=== PATIENT | male | born 1960 | race Caucasian/White ===

== ENCOUNTER 2018-04-08 21:30 | Emergency (ER) | payer OTHER, SELFPAY ==
[2018-04-08 21:40] VITALS: BP 166/91; PULSE 94; RESP 18; TEMP 36.2; O2SAT 100; BMI 32.6
--- NOTE | 2018-04-08 22:10 | ED.ABDPAIN ---
HPI - Abdominal Pain General Chief Complaint: Abdominal Pain Stated Complaint: sharp pain in stomach when eating Time Seen by Provider: 04/08/18 22:10 Source: patient Mode of arrival: ambulatory Limitations: no limitations History of Present Illness HPI narrative: The patient complains of epigastric abdominal pain. He has had this pain for 3 weeks. He has nausea without emesis. He denies fever or chills. The pain is described as severe, sharp and burning. Pain occurs after eating. He has had 2 recent visits to [facility], with [address] abdominal [address] The CTs were reportedly normal. He is status post Abraham fundoplication several years ago. At that time the surgeons had helped to remove his gallbladder, fearing it was bad. The cholecystectomy did not occur due to difficulty with the primary surgical procedure. He has had no follow up on his gallbladder since then, other than the CTs noted above. He is not having bowel or urine changes he has no urinary complaints. He has no diarrhea or constipation. Related Data Home Medications Medication Instructions Recorded Confirmed lisinopril #0 10/10/16 Allergies Allergy/AdvReac Type Severity Reaction Status Date / Time No Known Allergies Allergy Uncoded 11/11/17 12:42 Review of Systems Constitutional Reports as per HPI, Denies chills, Denies fever(s), Denies lethargy and Denies weakness ENT Ears, Nose, Mouth, and Throat: Denies change in voice, Denies neck pain, Denies sore throat and Denies throat swelling Cardiovascular Denies chest pain, Denies irregular heart rhythm, Denies lightheadedness, Denies palpitations, Denies dyspnea, Denies dyspnea on exertion and Denies orthopnea Respiratory Denies cough, Denies dyspnea, Denies dyspnea on exertion and Denies wheezing Gastrointestinal Gastrointestinal: Reports abdominal pain, Denies change in bowel habits, Denies diarrhea, Reports nausea and Denies vomiting Genitourinary Denies urinary frequency Musculoskeletal Denies joint swelling and Denies neck pain Integumentary/Breasts Denies erythema and Denies rash Neurologic Denies weakness Endocrine Denies palpitations Allergic/Immunologic Denies throat swelling and Denies wheezing [facility] Medical History GERD (gastroesophageal reflux disease) (Acute) Hypertension (Acute) Surgical History History of Filomena fundoplication (Acute) Social History Smoking Status: Never smoker substance use type: does not use Exam Initial Vital Signs Initial Vital Signs: Vital Signs Temperature 97.1 F L 04/08/18 21:40 Pulse Rate 94 H 04/08/18 21:40 Respiratory Rate 18 04/08/18 21:40 Blood Pressure 166/91 H 04/08/18 21:40 Pulse Oximetry 100 04/08/18 21:40 Const General: cooperative, healthy appearing and acute distress HENMT Head: normal to inspection, normocephalic and atraumatic Mouth: oral mucosae normal and moist mucous membranes Throat: posterior oropharynx normal Eyes General: appearance normal, both eyes and all related structures Conjunctivae: conjunctivae normal Neck Thyroid: thyroid normal Resp Effort & Inspection: normal respiratory effort, able to speak in complete sentences, no respiratory distress and no use of accessory muscles Auscultation: clear to auscultation bilaterally, no rales, no rhonchi and no wheezes Cardio Rate: regular rate Rhythm: regular rhythm Heart Sounds: no click, no gallops, no murmurs and no rubs Pulses: normal peripheral pulses GI Inspection: non-distended Palpation: no hepatosplenomegaly, No guarding, No pulsatile mass and tender ( in the epigastric area.) Auscultation: normal bowel sounds Back/Spine/Pelvis Back: normal to inspection and No CVA tenderness Skin General: no rashes or lesions noted Neuro General: alert, oriented x3 and no focal motor deficits Extrem General: normal to inspection and full ROM Course Orders Ordered: ED Orders 04/08/18 21:45 Complete Blood Count AUTO DIFF Stat Comprehensive Metabolic Panel Stat Lipase Stat 04/08/18 22:30 US abdomen complete Stat Sodium Chloride (Normal Saline 0.9%) 1,000 mls @ 150 mls/hr IV CONT FRANCES Last Admin: 04/08/18 22:51 Dose: 150 mls/hr Discontinued Medications Al Hydrox/Mg Hydrox/Simethicone 20 ml/ Lidocaine HCl 15 ml 0 ml PO NOW ONE Stop: 04/08/18 22:32 Last Admin: 04/08/18 22:53 Dose: 30 ml Hydromorphone HCl (Dilaudid) 1 mg IV Q15M FRANCES Stop: 04/08/18 22:46 Last Admin: 04/08/18 23:10 Dose: 1 mg Admin: 09/06/18 22:52 Dose: 1 mg Ondansetron HCl (Zofran) 4 mg IV NOW ONE Stop: 04/08/18 22:54 Last Admin: 04/08/18 22:54 Dose: 4 mg Pantoprazole Sodium (Protonix) 40 mg IV NOW ONE Stop: 04/08/18 22:30 Last Admin: 04/08/18 22:53 Dose: 40 mg Vital Signs - 8 hr 04/08/18 21:40 04/08/18 23:22 Temperature 97.1 F L Pulse Rate 94 H 64 Respiratory Rate 18 Blood Pressure 166/91 H Pulse Oximetry 100 95 MDM - Abdominal Pain Lab Data Attestation: I reviewed the patient's lab results. Result diagrams: 04/08/18 21:45 04/08/18 21:45 Lab Results 04/08/18 04/08/18 Range/Units 21:45 21:45 WBC 9.5 (4.5-11.0) X10^3/uL RBC 4.74 (4.5-5.9) X10^6/uL Hgb 15.0 (13.5-17.5) g/dL Hct 43.7 (41-53) % MCV 92.3 (80-100) fL MCH 31.7 (26-34) PG MCHC 34.3 (30-36) % RDW 13.7 (11.6-14.8) % Plt Count 210 (150-400) X10^3/uL Neut % (Auto) 45.2 L (50-75) % Lymph % (Auto) 28.9 (25-40) % Bledsoe % (Auto) 8.7 (3-14) % Eos % (Auto) 16.9 H (2-4) % Baso % (Auto) 0.3 (0-2) % Neut # (Auto) 4300 (1813-9939) /uL Sodium 142 (137-145) mmol/L Potassium 4.0 (3.4-5.1) mmol/L Chloride 102 (98-107) mmol/L Carbon Dioxide 28 (22-32) mmol/L BUN 17 (9-20) mg/dL Creatinine 1.20 (0.66-1.25) mg/dL Estimated GFR > 60.0 (>60) mL/min BUN/Creatinine Ratio 14.2 (6-22) Glucose 116 H (70-100) mg/dL Calcium 9.4 (8.4-10.2) mg/dL Total Bilirubin 0.7 (0.2-1.3) mg/dL AST 36 (17-59) IU/L ALT 46 (21-72) IU/L Alkaline Phosphatase 61 (38-126) U/L Total Protein 7.6 (6.3-8.2) g/dL Albumin 4.4 (3.5-5.0) g/dL Globulin 3.2 (1.7-4.1) g/dL Albumin/Globulin Ratio 1.4 (1.0-2.8) Lipase 148 (23-300) U/L Imaging Data US - abdomen: Attestation: I personally reviewed and interpreted this imaging study as follows: ( Normal ultrasound of the gallbladder.) [facility] Narrative Medical decision making narrative: The patient's symptoms have improved greatly with the medications given. He will referred back to his own doctor hopefully to arrange a HIDA scan and/or a GI consult. Discharge Plan Departure Patient Disposition: Home Clinical Impression: Abdominal pain, epigastric Discharge Date/Time: 04/09/18 00:43 Instructions: DI for Abdominal Pain-Adult Activity Restrictions/Additional Instructions: Continue your current medications. You need to be on a low-fat diet. Follow up with her doctor. I would recommend a HIDA scan. If the HIDA scan is normal you should have a Gastroenterology consult. Prescriptions: No Action lisinopril 10 MG tablet Qty: 0 RF: 0 Stand Alone Forms: Work/School Restrictions
--- NOTE | 2018-04-08 22:30 | DI.US.S_ITS ---
PROCEDURE: US ABDOMEN COMPLETE INDICATIONS: Epigastric/RYUQ pain TECHNIQUE: Real-time scanning was performed of the abdominal and retroperitoneal organs, with image documentation. COMPARISON: None. FINDINGS: Liver: Liver is normal in size and homogeneous in echotexture.Liver has a diffusely increased echotexture which typically represents fatty infiltration; however, finding is nonspecific and other etiologies including hepatic cirrhosis can have a similar appearance. Please correlate with clinical and laboratory findings. Gallbladder: Gallbladder is sonographically normal. No gallstones. No gallbladder wall thickening. No pericholecystic fluid. No sonographic Beth sign. Biliary ducts: Intrahepatic bile ducts are non-dilated. Extrahepatic bile duct caliber measures 5.0 mm. Normal is 6-7 mm or less in diameter, or 10 mm or less post-cholecystectomy. Pancreas: Not visualized due to bowel gas and cannot be evaluated. Spleen: Spleen is normal in size and homogeneous in echotexture. Kidneys: Kidneys are normal in size and echotexture. Right kidney measures 10.4 cm long; left kidney measures 12.0 cm long. No hydronephrosis or nephrolithiasis. No solid masses. Aorta: Not visualized bowel gas and cannot be evaluated. Iliacs: Not visualized due to bowel gas and cannot be evaluated. IVC: The visualized bowel gas and cannot be evaluated. Miscellaneous: No free abdominal fluid. IMPRESSION: 1. Echogenic liver. Finding typically represents fatty infiltration; however, finding is nonspecific and correlation with clinical and laboratory findings is recommended to exclude other etiologies including hepatic cirrhosis. 2. No sonographic evidence of cholecystitis. 3. Pancreas, aorta, iliac vasculature and IVC are not visualized due to bowel gas and cannot be evaluated. Dictated by: Susanna Lawrence MD, PhD on 04/09/2018 at 7:38 Approved by: Susanna Lawrence MD, PhD on 04/09/2018 at 7:40
[2018-04-08 22:37] LABS: Add Manual Diff / Slide Review NO; Basophils Percent Auto 0.3 % (0-2); Eosinophils Percent Auto 16.9 % (2-4); Hematocrit 43.7 % (41-53); Lymphocytes Percent Auto 28.9 % (25-40); Mean Corpuscular HGB Conc 34.3 % (30-36); Mean Corpuscular Hemoglobin 31.7 PG (26-34); Mean Corpuscular Volume 92.3 fL (80-100); Monocytes Percent Auto 8.7 % (3-14); Neutrophils Absolute Auto 4300 /uL (3000-5900); Neutrophils Percent Auto 45.2 % (50-75); Platelet Count 210 X10^3/uL (150-400); Red Blood Cell Count 4.74 X10^6/uL (4.5-5.9); Red Cell Distribution Width 13.7 % (11.6-14.8); White Blood Cell Count 9.5 X10^3/uL (4.5-11.0)
[2018-04-08] MEDS: SODIUM CHLORIDE 0.9% 1,000 ML 150 ML IV (22:51)
[2018-04-08] MEDS: HYDROMORPHONE 1 MG INJ IV ×2 (22:52→23:10)
[2018-04-08] MEDS: MAG HYDROX/ALUMINUM/SIMETH SUS 20 ML, LIDOCAINE VISCOUS 2% 15 ML PO (22:53)
[2018-04-08] MEDS: PANTOPRAZOLE 40 MG VIAL IV (22:53)
[2018-04-08] MEDS: ONDANSETRON 4 MG/2 ML INJ IV (22:54)
[2018-04-08 22:58] LABS: Alanine Aminotransferase 46 IU/L (21-72); Albumin 4.4 g/dL (3.5-5.0); Albumin Globulin Ratio 1.4 (1.0-2.8); Alkaline Phosphatase 61 U/L (38-126); Aspartate Aminotransferase 36 IU/L (17-59); BUN Creatinine Ratio 14.2 (6-22); Bilirubin Total 0.7 mg/dL (0.2-1.3); Blood Urea Nitrogen 17 mg/dL (9-20); Calcium 9.4 mg/dL (8.4-10.2); Carbon Dioxide 28 mmol/L (22-32); Chloride 102 mmol/L (98-107); Estimated Glomerular Filt Rate > 60.0 mL/min (>60); Globulin 3.2 g/dL (1.7-4.1); Glucose 116 mg/dL (70-100); HEMOLYSIS < 15 (0-50); Lipase 148 U/L (23-300); Sodium 142 mmol/L (137-145); Total Protein 7.6 g/dL (6.3-8.2)
[2018-04-08 23:22] VITALS: PULSE 64; O2SAT 95
[2018-04-09 00:42] VITALS: BP 128/78; PULSE 71; RESP 16; O2SAT 97
== END 2018-04-09 00:43 | disposition home or self-care (01) ==
PROVIDERS: Emergency Provider Emergency Medicine
DX: R10.13 Epigastric pain (principal)
CPT/HCPCS: 36591; 76700; 80053; 83690; 85025; 96361; 96374; 96375; 99283; 99284; C9113; J1170; J2405

== ENCOUNTER → 2023-10-27 15:47 | Outpatient (CLI) | payer OTHER, SELFPAY ==
--- NOTE | 2023-10-27 | DI.MRI.S_ITS ---
PROCEDURE: MR KNEE RT WO CON INDICATIONS: TORN LIGAMENT TECHNIQUE: Noncontrast sagittal PD fast spin echo and T2 fast spin echo with fat saturation, sagittal 3-D FLASH with fat saturation; coronal T1 spin echo and PD fast spin echo with fat saturation, and axial PD fast spin echo with fat saturation through the knee. COMPARISON: None. FINDINGS: Image quality: Excellent. Menisci: Peripheral displacement of medial meniscus bowing medial collateral ligament is seen. Complex tear involving body and posterior horn of medial meniscus is noted extending to both superior and inferior articulating surfaces. The lateral meniscus is intact. The meniscal root ligaments appear intact. Cruciate ligaments: The anterior cruciate ligament is thickened with intrasubstance T2 hyperintense signal. The posterior cruciate ligament is intact. Medial structures: The medial collateral ligament appears thickened with surrounding soft tissue edema. Visualized portions of the pes anserinus tendons appear normal. No abnormal bursal fluid. Lateral structures: The lateral collateral ligament, long and short heads of the biceps femoris tendon appear intact. The popliteus tendon appears normal. Iliotibial band appears normal. Anterior structures: Distal quadriceps tendon is intact. Proximal patellar tendinosis at its inferior patellar insertion is seen. Patellar alignment is normal. No femoral trochlear dysplasia or ventral trochlear prominence. No edema in the infrapatellar fat pad. Bones and cartilage: No fracture or dislocation. 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 Joint space: There is small knee joint fluid. There is a tiny popliteal cyst measures 1.3 x 1.1 x 1.1 cm in size. Normal appearing synovial plicae are incidentally noted. IMPRESSION: 1. Complex tear involving body and posterior horn of medial meniscus extending to both superior and inferior articulating surfaces. The lateral meniscus is intact. 2. Low to moderate grade sprain/intrasubstance partial-thickness tear involving anterior cruciate ligament. No ACL rupture. The PCL is intact. 3. Low-grade MCL sprain. 4. Proximal patellar tendinosis. 5. [id number] tricompartmental osteoarthritis and chondromalacia most notably in medial femoral tibial compartment. No fracture or dislocation. Small joint effusion and a tiny popliteal cyst. No gross loose bodies. Dictated by: Jean Claude Yan M.D. on 10/28/2023 at 8:43 Approved by: Jean Claude Yan M.D. on 10/28/2023 at 8:45
== END ==
PROVIDERS: Referring Provider Orthopaedic Surgery Foot and Ankle Surgery; Visit Provider Orthopaedic Surgery Foot and Ankle Surgery
DX: S83.231A Complex tear of medial meniscus, current injury, right knee, initial encounter (principal); S83.511A Sprain of anterior cruciate ligament of right knee, initial encounter; S83.411A Sprain of medial collateral ligament of right knee, initial encounter; M17.11 Unilateral primary osteoarthritis, right knee; M94.261 Chondromalacia, right knee; M25.461 Effusion, right knee; X58.XXXA Exposure to other specified factors, initial encounter
CPT/HCPCS: 73721

== ENCOUNTER → 2023-12-22 17:24 | Outpatient (CLI) | payer OTHER, SELFPAY ==
[2023-12-22 18:08] LABS: Add Manual Diff / Slide Review NO; Basophils Absolute Auto 0 /uL (0-100); Basophils Percent Auto 0.5 % (0-2); Eosinophils Absolute Auto 200 /uL (0-450); Eosinophils Percent Auto 2.7 % (2-4); Hematocrit 41.7 % (41-53); Hemoglobin 14.3 g/dL (13.5-17.5); Lymphocytes Absolute Auto 3300 /uL (1100-4500); Lymphocytes Percent Auto 36.4 % (25-40); Mean Corpuscular HGB Conc 34.3 % (30-36); Mean Corpuscular Hemoglobin 32.6 PG (26-34); Mean Corpuscular Volume 95.1 fL (80-100); Monocytes Absolute Auto 1000 /uL (0-900); Monocytes Percent Auto 10.8 % (3-14); Neutrophils Absolute Auto 4500 /uL (1500-7000); Neutrophils Percent Auto 49.6 % (50-75); Platelet Count 217 X10^3/uL (150-400); Red Blood Cell Count 4.39 X10^6/uL (4.5-5.9); Red Cell Distribution Width 14.3 % (11.6-14.8)
[2023-12-22 18:36] LABS: Hemoglobin A1C% w Est Avg Glu 5.4 % (4.0-6.0)
[2023-12-22 18:45] LABS: BUN Creatinine Ratio 19.6 (6-22); Blood Urea Nitrogen 19 mg/dL (9-20); Calcium 8.8 mg/dL (8.4-10.2); Carbon Dioxide 27 mmol/L (22-32); Chloride 105 mmol/L (98-107); Estimated Glomerular Filt Rate > 60 mL/min (>60); Glucose 94 mg/dL (80-110); HEMOLYSIS < 15 (0-50); Potassium 4.5 mmol/L (3.4-5.1); Sodium 138 mmol/L (137-145)
== END ==
PROVIDERS: PCP Family Medicine Sports Medicine; Referring Provider Orthopaedic Surgery Foot and Ankle Surgery; Visit Provider Orthopaedic Surgery Foot and Ankle Surgery
DX: Z01.818 Encounter for other preprocedural examination (principal); Z01.812 Encounter for preprocedural laboratory examination; R73.9 Hyperglycemia, unspecified
CPT/HCPCS: 36415; 80048; 83036; 85025; 93005